=== PATIENT | female | born 1995 ===

== ENCOUNTER 2019-02-16 08:45 | Emergency (ER) | payer OTHER ==
--- NOTE | 2019-02-16 09:55 | UC ---
Skin Complaint HPI - HPI Summary HPI Summary: 23 yo female presents with bug bite to left dubois. She tells me that last night she felt a bug bite to her left dubois. This morning she woke up and noticed a small blister to the area with mild surrounding redness. Slight tenderness. Unsure what bit her. Denies fever or chills - History of Current Complaint Chief Complaint: UCSkin Time Seen by Provider: 02/16/19 09:55 Stated Complaint: BUG BITE Hx Obtained From: Patient Hx Last Menstrual Period: 02/04/19 Onset/Duration: Sudden Onset Onset Severity: Mild Current Severity: Mild Pain Intensity: 2 Pain Scale Used: 0-10 Numeric - Allergy/Home Medications Allergies/Adverse Reactions: Allergies Allergy/AdvReac Type Severity Reaction Status Date / Time No Known Allergies Allergy Verified 02/16/19 09:28 PMH/Surg Hx/FS Hx/Imm Hx - Additional Past Medical History Additional PMH: None - Surgical History Surgical History: Yes Surgery Procedure, Year, and Place: [place] - Family History Known Family History: Positive: Non-Contributory - Social History Occupation: Employed Full-time Lives: With Family Alcohol Use: None Substance Use Type: None Smoking Status (MU): Never Smoked Tobacco Review of Systems All Other Systems Reviewed And Are Negative: No Constitutional: Positive: Negative Skin: Positive: Other - Bug bite left dubois Respiratory: Positive: Negative Cardiovascular: Positive: Negative Neurological: Positive: Negative Psychological: Positive: Negative Physical Exam - Summary Physical Exam Summary: GENERAL: NAD. WDWN. No pain distress. SKIN: LEFT DUBOIS: 1.0cm area of slight erythema with central 5mm blister that appears to be filled with blood. Slight TTP. No streaking, abscess, or open wound appreciated. NECK: Supple. Nontender. No lymphadenopathy. CHEST: No accessory muscle use. Breathing comfortably and in no distress. CV: Pulses intact. Cap refill <2seconds NEURO: Alert. PSYCH: Age appropriate behavior. Triage Information Reviewed: Yes Vital Signs: Initial Vital Signs Temp 99.3 F 02/16/19 09:24 Pulse 110 02/16/19 09:24 Resp 18 02/16/19 09:24 BP 147/89 02/16/19 09:24 Pulse Ox 100 02/16/19 09:24 Vital Signs Reviewed: Yes Course/Dx - Course Course Of Treatment: Culture obtained from blister. Suspect localized reaction to bug bite and will place pt on bactroban. - Diagnoses Provider Diagnosis: Bug bite Discharge ED - Sign-Out/Discharge Documenting (check all that apply): Patient Departure All imaging exams completed and their final reports reviewed: No Studies - Discharge Plan Condition: Stable Disposition: HOME Prescriptions: Mupirocin 2% OINT* [Bactroban 2 % Oint*] 1 applic TOPICAL BID #1 tube Patient Education Materials: Insect Bite or Sting (ED) Referrals: No Primary Care Phys,NOPCP [Primary Care Provider] - Additional Instructions: If you develop a fever, shortness of breath, chest pain, new or worsening symptoms - please call your PCP or go to the ED immediately. Your blood pressure was high at todays visit. Please see your primary provider within 4 weeks for recheck and re-evaluation. Please change the band-aid daily until well healed (likely 5-7days) - Billing Disposition and Condition Condition: STABLE Disposition: Home
--- NOTE | 2019-02-18 15:45 | UC ---
- Progress Note Progress Note: Left leg Gram stain and wound culture from February 16, 2019 comes back with MRSA negative staph aureus negative wound culture normal izzy. , Gram stain is possible 1+ gram-positive cocci. Patient was given topical mupirocin. Nursing to call patient and if the patient is not improving will need to call and an oral antibiotic but if they're improving continue with the present care. Course/Dx - Diagnoses Provider Diagnoses: Bug bite Discharge ED - Sign-Out/Discharge Documenting (check all that apply): Patient Departure All imaging exams completed and their final reports reviewed: No Studies - Discharge Plan Condition: Stable Disposition: HOME Prescriptions: Mupirocin 2% OINT* [Bactroban 2 % Oint*] 1 applic TOPICAL BID #1 tube Patient Education Materials: Insect Bite or Sting (ED) Referrals: No Primary Care Phys,NOPCP [Primary Care Provider] - Additional Instructions: If you develop a fever, shortness of breath, chest pain, new or worsening symptoms - please call your PCP or go to the ED immediately. Your blood pressure was high at todays visit. Please see your primary provider within 4 weeks for recheck and re-evaluation. Please change the band-aid daily until well healed (likely 5-7days) - Billing Disposition and Condition Condition: STABLE Disposition: Home
== END 2019-02-16 10:13 | disposition home or self-care (01) ==
LOC: UCEAST 08:45
DX: S80.862A Insect bite (nonvenomous), left lower leg, initial encounter (principal); W57.XXXA Bitten or stung by nonvenomous insect and other nonvenomous arthropods, initial encounter; Y92.9 Unspecified place or not applicable
CPT/HCPCS: 87070; 87077; 87205; 87640; 87641; 99202; G0463